=== PATIENT | female | born 1995 | race African-American/Black ===

== ENCOUNTER 2019-05-18 19:36 | Emergency (ER) | payer BC, OTHER ==
[2019-05-18 20:05] LABS: #Eosinphils 0.2 thou/uL (0.0-0.7); #Monocytes 1.1 thou/uL (0.11-0.59); #Neutrophils 5.8 thou/uL (1.40-6.50); %Basophils 0.4 % (0.0-1.0); %Eosinophils 1.7 % (0.0-10.0); %Lymphocytes 22.2 % (21.0-51.0); %Monocytes 12.4 % (0.0-10.0); %Neutrophils 63.3 % (42.0-75.0); Hemoglobin 13.4 g/dL (12.0-16.0); Mean Corpuscular HGB CONC 33.6 g/dL (32.0-36.0); Mean Corpuscular Hemoglobin 30.3 pg (27.0-31.0); Mean Corpuscular Volume 90.4 fL (78.0-98.0); Mean Platelet Volume 7.9 fL (7.4-10.4); Platelet Count 284 thou/uL (130-400); RBC Distribution Width 11.5 % (11.5-14.5); Red Blood Cell (RBC) Count 4.42 mill/uL (4.20-5.40); White Blood Cell (WBC) Count 9.2 thou/uL (4.8-10.8)
[2019-05-18 20:25] LABS: ALT (SGPT) 36 U/L (8-55); AST (SGOT) 30 U/L (5-34); Alkaline Phosphatase 57 U/L (40-150); Anion Gap 13 mmol/L (10-20); BUN (Urea Nitrogen) 5 mg/dL (7.0-18.7); Bilirubin, Total 0.2 mg/dL (0.2-1.2); Calc. Creatinine Clearance 0 mL/min (70-130); Carbon Dioxide 25 mmol/L (22-29); Chloride 105 mmol/L (98-107); Estimated GFR-MDRD Greater than 90; Globulin 3.4 g/dL (2.4-3.5); Glucose 91 mg/dL (70-105); Potassium 3.5 mmol/L (3.5-5.1); Protein, Total 7.4 g/dL (6.0-8.3); Sodium 139 mmol/L (136-145)
[2019-05-18] MEDS ORDERED: Ondansetron PF 4 MG/2 ML Vial ONE (21:02)
[2019-05-18 21:35] LABS: BHCG - Serum Negative (NEGATIVE); Pregs Control Background? CLEAR/WHITE (CLR/WHITE); Pregs Control Bar Appear? YES (CONTROL BAR)
[2019-05-18 21:58] LABS: CK (CPK) 322 U/L (29-168); Lipase 28 U/L (8-78)
[2019-05-19 00:40] LABS: Bilirubin Negative (Negative); Blood, Urine Large (Negative); Clarity CLOUDY (Clear); Glucose, Urine (Dipstick) Negative (Negative); Leukocyte Negative (Negative); Nitrite Negative (Negative); Protein, Urine (Dipstick) Negative (Neg-Trace); Specific Gravity, Urine 1.015 (1.002-1.036); Urobilinogen 0.2 mg/dL (0.2-1.0); pH, Urine 5.5 (5.0-9.0)
[2019-05-19 00:42] LABS: Bacteria/HPF None Seen HPF (None Seen); Hyaline Casts/LPF 4-6 HYALINE CAST LPF (0-3 Hyaline); Pathc Cast-AUWi Flag 1.08 (0-2.49)
== END 2019-05-19 00:20 | disposition home or self-care (01) ==
LOC: ERS 19:36
DX: R11.2 Nausea with vomiting, unspecified (principal); R19.7 Diarrhea, unspecified
CPT/HCPCS: 36415; 80053; 81003; 81015; 82274; 82550; 83605; 83630; 83690; 84703; 85025; 87045; 87046; 87449; 87899; 96361; 96372; 96374; J0500; J2405

== ENCOUNTER 2020-01-12 20:30 | Outpatient (CLI) | payer BC, OTHER | END 2020-01-12 20:31 | disposition home or self-care (01) | LOC: SLEEPLAB 20:30 | PROVIDERS: ATTEND Physician Assistant | DX: G47.33 Obstructive sleep apnea (adult) (pediatric) (principal); R06.83 Snoring; R53.83 Other fatigue; E66.9 Obesity, unspecified; G47.69 Other sleep related movement disorders | CPT/HCPCS: 95811 ==

== ENCOUNTER 2020-04-22 11:46 | Emergency (ER) | payer BC, OTHER ==
[2020-04-22 12:35] LABS: #Basophils 0.1 thou/uL (0.0-0.2); #Eosinphils 0.1 thou/uL (0.0-0.7); #Lymphocytes 2.5 thou/uL (1.20-3.40); #Monocytes 0.6 thou/uL (0.11-0.59); #Neutrophils 3.8 thou/uL (1.40-6.50); %Basophils 1.9 % (0.0-1.0); %Lymphocytes 35.4 % (21.0-51.0); %Neutrophils 53.8 % (42.0-75.0); Hemoglobin 15.6 g/dL (12.0-16.0); Mean Corpuscular HGB CONC 33.4 g/dL (32.0-36.0); Mean Corpuscular Hemoglobin 29.4 pg (27.0-31.0); Mean Corpuscular Volume 87.9 fL (78.0-98.0); Mean Platelet Volume 10.1 fL (7.4-10.4); Platelet Count 253 thou/uL (130-400); RBC Distribution Width 12.1 % (11.5-14.5); Red Blood Cell (RBC) Count 5.33 mill/uL (4.20-5.40)
[2020-04-22 12:42] LABS: BHCG - Serum Negative (NEGATIVE); Pregs Control Background? CLEAR/WHITE (CLR/WHITE); Pregs Control Bar Appear? YES (CONTROL BAR)
[2020-04-22 12:56] LABS: ALT (SGPT) 46 U/L (8-55); AST (SGOT) 30 U/L (5-34); Albumin 4.4 g/dL (3.5-5.0); Alkaline Phosphatase 102 U/L (40-110); Anion Gap 16 mmol/L (10-20); BUN (Urea Nitrogen) 6 mg/dL (7.0-18.7); Bilirubin, Total 0.4 mg/dL (0.2-1.2); CK (CPK) 133 U/L (29-168); Calc. Creatinine Clearance 0 mL/min (70-130); Calcium 9.6 mg/dL (7.8-10.44); Carbon Dioxide 20 mmol/L (22-29); Chloride 102 mmol/L (98-107); Estimated GFR-MDRD 81; Globulin 3.9 g/dL (2.4-3.5); Glucose 385 mg/dL (70-105); Lipase 34 U/L (8-78); Magnesium 1.9 mg/dL (1.6-2.6); Protein, Total 8.3 g/dL (6.0-8.3); Sodium 134 mmol/L (136-145)
[2020-04-22 13:46] LABS: Bilirubin Negative (Negative); Blood, Urine 2+ (Negative); Clarity Clear (Clear); Glucose, Urine (Dipstick) Greater than 1000 mg/dL (Negative); Leukocyte Negative Leu/uL (Negative); Nitrite Negative (Negative); Protein, Urine (Dipstick) 50 mg/dL (Neg-Trace); RBC/HPF 0-3 HPF (0-3); Squamous Epithelial 0-3 HPF (0-3); Urobilinogen Normal mg/dL (Less than 2); WBC/HPF 0-3 HPF (0-3)
[2020-04-22 13:57] LABS: Bacteria/HPF Rare-Few HPF (None Seen)
[2020-04-22] MEDS ORDERED: Ondansetron PF 4 MG/2 ML Vial ONE (14:35)
[2020-04-22] MEDS ORDERED: Thrombin 5000 UNITS/5 ML VIAL ONE (15:33)
[2020-04-22] MEDS ORDERED: Bacitracin Zinc Ointment 30 gm TUBE ONE (15:33)
[2020-04-22] MEDS ORDERED: Lidocaine 1% w/Epinephrine 1:100K 20 ML VIAL ONE (15:33)
[2020-04-22] MEDS ORDERED: Sodium Chloride 0.9% 20 ML ONE (15:34)
--- NOTE | 2020-04-22 16:12 | ULT ---
RIGHT UPPER QUADRANT ULTRASOUND: 04/22/20 COMPARISON: None. HISTORY: Right upper quadrant pain. TECHNIQUE: Multiplanar bloom scale sonographic imaging of the right upper quadrant provided. FINDINGS: The pancreas is obscured by bowel gas. Hepatic parenchyma is heterogeneous and echogenic suggesting h epatocellular disease such as steatosis. This limits assessment for focal liver lesion and biliary di latation. Body habitus and echogenicity of the hepatic parenchyma limit detailed assessment of the ga llbladder. No discrete gallstones. No gallbladder wall thickening or pericholecystic fluid. Right kid milagros measures approximately 12 cm craniocaudal dimension and demonstrates no stone, hydronephrosis or mass. The common bile duct could not be visualized on this examination. The manager proposal reports a neg ative Olsen's sign. IMPRESSION: Increased echogenicity of the hepatic parenchyma suggests steatosis. No cholelithiasis is evident. POS: [facility]
== END 2020-04-22 17:00 | disposition home or self-care (01) ==
LOC: ERS 11:46
DX: R11.2 Nausea with vomiting, unspecified (principal); R10.11 Right upper quadrant pain; G47.30 Sleep apnea, unspecified
CPT/HCPCS: 76705; 80053; 81003; 81015; 82550; 83605; 83690; 83735; 84703; 85025; 96361; 96374; J2405; J3370